=== PATIENT | female | born 1975 | race Two or more races ===

== ENCOUNTER 2023-10-30 14:23 | Emergency (ER) | payer OTHER ==
[~2023-10-30] VITALS: Ht 167.6 cm; Wt 74.8 kg
[2023-10-30] MEDS ORDERED: KETOROLAC TROMETHAMINE 30 MG VIAL IM STA (17:25)
[2023-10-30] MEDS ORDERED: CEFTRIAXONE SODIUM 1,000 MG VIAL IM STA (17:26)
[2023-10-30] MEDS ORDERED: DIPHENHYDRAMINE HCL 50 MG/ML VIAL 1ML IM STA (17:26)
== END 2023-10-30 17:41 | disposition home or self-care (01) ==
LOC: ER 14:24
DX: R53.81 Other malaise (principal); L25.9 Unspecified contact dermatitis, unspecified cause; E03.8 Other specified hypothyroidism
CPT/HCPCS: 96372; 99282; J0696; J1200; J1885